=== PATIENT | female | born 1980 | race Caucasian/White ===

== ENCOUNTER 2025-03-05 20:08 | Emergency (ER) | payer MEDICAID, OTHER ==
[2025-03-05 21:01] LABS: APPEARANCE,URINE SLIGHTLY CLOUDY (CLEAR); GLUCOSE,URINE NEGATIVE (NEGATIVE); OCCULT BLOOD,URINE TRACE-INTACT (NEGATIVE)
[2025-03-05 21:04] LABS: BASOPHILS ABSOLUTE AUTO 0.05 K/uL (0.00-0.10); BASOPHILS PERCENT AUTO 0.4 % (0.1-1.3); EOSINOPHILS PERCENT AUTO 0.1 % (0.0-5.4); IMMATURE GRAN ABSOLUTE AUTO 0.04 K/uL (0.00-0.23); IMMATURE GRAN PERCENT AUTO 0.3 % (0.0-0.7); LYMPHOCYTES ABSOLUTE AUTO 1.49 K/uL (0.8-3.3); LYMPHOCYTES PERCENT AUTO 11.9 % (11.4-47.7); MONOCYTES ABSOLUTE AUTO 1.15 K/uL (0.20-0.90); MONOCYTES PERCENT AUTO 9.1 % (3.3-12.6); NEUTROPHILS ABSOLUTE AUTO 9.83 K/uL (1.0-7.6); NEUTROPHILS PERCENT AUTO 78.2 % (40.0-78.1); PLATELET COUNT,PLT 319 K/uL (130-375); RED BLOOD CELL COUNT 4.30 M/uL (3.77-5.24); WHITE BLOOD CELL COUNT,WBC 12.6 K/uL (3.2-11.0)
[2025-03-05 21:07] LABS: EOSINOPHILS ABSOLUTE AUTO 0.01 K/uL (0.00-0.40)
[2025-03-05] MEDS: Ketorolac 15 MG/ML SDV IVPUSH ONE (21:10)
[2025-03-05 21:15] LABS: EPITHELIAL CELLS,URINE RARE
[2025-03-05 21:26] LABS: A/G RATIO 1.0 (1.2-2.2); ALANINE AMINOTRANSFERASE,ALT 48 U/L (12-78); ASPARTATE AMNIOTRANSFERASE,AST 65 U/L (15-37); BILIRUBIN TOTAL 0.3 mg/dL (0.2-1.0); BLOOD UREA NITROGEN,BUN 11 mg/dL (7-18); CARBON DIOXIDE,CO2 29 mmol/L (21-32); CHLORIDE,CL 102 mmol/L (100-108); CREATININE 1.0 mg/dL (0.6-1.0); EST CRCL DRUG DOSING (CG) 56.78 mL/min; ESTIMATED GFR 71 mL/min (>60); GLUCOSE RANDOM 118 mg/dL (74-106); POTASSIUM,K 4.3 mmol/L (3.6-5.2); PROTEIN TOTAL,TP 7.7 g/dL (6.4-8.2); SODIUM,NA 137 mmol/L (140-148)
== END 2025-03-05 23:01 | disposition home or self-care (01) ==
LOC: JP.ED 20:08
DX: B34.9 Viral infection, unspecified (principal); N39.0 Urinary tract infection, site not specified; Z88.0 Allergy status to penicillin; Z79.51 Long term (current) use of inhaled steroids; Z79.899 Other long term (current) drug therapy
CPT/HCPCS: 36415; 71046; 80053; 81001; 83605; 85025; 96361; 96374; 99284; A9270; J1885; J7030